=== PATIENT | female | born 1950 | race Caucasian/White ===

== ENCOUNTER → 2018-01-21 | Outpatient (CLI) | payer MEDICARE ==
[~2018-01-21] MED LIST: ACETAMINOPHEN-120 ML PO; ADVAIR 250-501 EACH INH; ADVAIR INH; ALBUTEROL2.5 MG/31 INH; ALLEGRA-D 12 H1 EAC1 PO; AVAPRO 150 MG150 M1 PO; AVELOX 400 MG400 M1 PO; AZITHROMYCIN500 MG PO; BROVANA15 MCG/2 M INH; CELEXA20 MG PO; COLACE100 MG PO; COMBIVENT INH; DELTASONE20 MG PO; DIPHENHIST50 MG PO; DUONEB 2.5-0.5 M3 ML INH; EPIPEN 2-P0.3 MG/0.3 IM; FLONASE 0.05%50 MCG NS; GLIPIZIDE ER10 MG PO; GLUCOPHAGE1000 MG PO; GLUCOPHAGE850 MG PO; HYDROXYZINE HCL25 M1 GT; IBUPROFEN 800800 M1 PO; IPRAT-ALBUT 0.5-3 ML INH; LEVAQUIN 500 M500 M2 PO; LEVEMIR SUBQ; LIPITOR 20 MG T20 M1 PO; LISINOPRIL5 MG PO; MEDROL DOSPAK21 TAB PO; NEURONTIN 300300 M1 PO; NORCO 5-325 TA1 EACH PO; NOVOLOG100 UNIT/1 SUBQ; OXYCODONE HCL 55 MG PO; PAXIL10 MG; PEPCID20 MG PO; PEPCID40 MG PO; PERCOCET 5-3251 EACH PO; PHENERGAN12.5 M2 RECTAL; PLAVIX 75 MG TA75 M1 PO; PREDNISONE 10 M10 M1 PO; PREDNISONE 10 M10 MG PO; PREDNISONE 20 M20 M1 PO; PREDNISONE 20 M20 MG PO; PREDNISONE50 MG PO; PRELONE15 MG/5 ML PO; PROAIR HFA8.5 GM IH; PROAIR HFA8.5 GM INH; PROTONIX40 M1 PO; PROTONIX40 M4 PO; SARNA222 ML TP; SINGULAIR 10 MG10 M1 PO; TESSALON PERLE100 MG PO; TESSALON200 MG PO; TRIAMCINOLONE A80 G2 TOP; VANTIN PO; VISTARIL 25 MG25 M1 PO; ZOFRAN ODT4 MG PO; ZOFRAN4 MG PO; ZPAK PO
== END ==
LOC: M.RAD 10:47
DX: J45.909 Unspecified asthma, uncomplicated (principal); E78.00 Pure hypercholesterolemia, unspecified; E11.9 Type 2 diabetes mellitus without complications; Z79.4 Long term (current) use of insulin

== ENCOUNTER → 2018-03-02 | Outpatient (CLI) | payer MEDICARE | LOC: M.RAD 10:14 | DX: Z12.31 Encounter for screening mammogram for malignant neoplasm of breast (principal) ==

== ENCOUNTER → 2019-10-05 | Outpatient (CLI) | payer MEDICARE | LOC: M.CT 08:48 | DX: J34.2 Deviated nasal septum (principal); J32.9 Chronic sinusitis, unspecified; J32.4 Chronic pansinusitis ==

== ENCOUNTER → 2020-01-03 | Outpatient (CLI) | payer MEDICARE | LOC: M.ULTRA 10:52 | PROVIDERS: ATTEND Nurse Practitioner Family | DX: E04.2 Nontoxic multinodular goiter (principal) ==